=== PATIENT | female | born 2000 | race African-American/Black ===

== ENCOUNTER 2023-10-02 14:37 | Emergency (ER) | payer SELFPAY ==
[~2023-10-02] VITALS: Ht 157.5 cm; Wt 47.6 kg
[2023-10-02 15:49] LABS: INFLUENZAE A&B ANTIGEN (RAPID) NEGATIVE (NEGATIVE); RESPIRATORY SYNC. VIRUS NEGATIVE (NEGATIVE)
[2023-10-02 15:55] VITALS: O2SAT 99
[2023-10-02] MEDS ORDERED: BENZONATATE100 MG PO (16:06)
== END 2023-10-02 16:05 | disposition home or self-care (01) ==
LOC: ER 14:56
DX: R50.9 Fever, unspecified (principal); B34.9 Viral infection, unspecified; R05.9 Cough, unspecified; R09.81 Nasal congestion
CPT/HCPCS: 87400; 87420; 99283; U0002